=== PATIENT | female | born 1935 | race Caucasian/White ===

== ENCOUNTER 2017-09-25 14:16 | Emergency (ER) | payer MEDICARE ==
[~2017-09-25] VITALS: Ht 162.6 cm; Wt 77.1 kg
--- NOTE | 2017-09-25 16:32 | Diagnostic Imaging Report ---
KNEE RIGHT THREE VIEWS, LOWER LEG RIGHT - 3 views HISTORY: Pain status post fall COMPARISON: None available. FINDINGS: Bones: No acute displaced fracture. Irregularity about the distal epiphysis of the fibula, associated with lateral malleolar soft tissue swelling concerning for mild avulsion injury. 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 Soft tissues: Small suprapatellar joint effusion. Quadriceps enthesopathy. Osteophyte off the superior pole of the patella with subtle lucency beneath it. Mild Achilles enthesopathy. IMPRESSION: Irregularity about the distal epiphysis of the fibula, associated with lateral malleolar soft tissue swelling concerning for mild avulsion injury. Please correlate with pain about the lateral malleolus/ankle. Signed by: Dr. Kenyon Shanks M.D. on 09/25/2017 4:29 PM
[2017-09-25 16:54] VITALS: BP 171/84
== END 2017-09-25 17:14 | disposition home or self-care (01) ==
LOC: ER 14:16
DX: S82.424A Nondisplaced transverse fracture of shaft of right fibula, initial encounter for closed fracture (principal); S80.01XA Contusion of right knee, initial encounter; S80.11XA Contusion of right lower leg, initial encounter; W01.0XXA Fall on same level from slipping, tripping and stumbling without subsequent striking against object, initial encounter; Y92.008 Other place in unspecified non-institutional (private) residence as the place of occurrence of the external cause
CPT/HCPCS: 99283